=== PATIENT | male | born 1935 | race Caucasian/White ===

== ENCOUNTER 2018-03-14 21:54 | Emergency (ER) | payer MEDICARE ==
[2018-03-14 22:36] LABS: #Eosinphils 0.5 thou/uL (0.0-0.7); #Lymphocytes 1.2 thou/uL (1.20-3.40); #Monocytes 0.6 thou/uL (0.11-0.59); %Basophils 0.7 % (0.0-1.0); %Eosinophils 6.8 % (0.0-10.0); %Lymphocytes 16.6 % (21.0-51.0); %Monocytes 7.7 % (0.0-10.0); %Neutrophils 68.3 % (42.0-75.0); Hemoglobin 11.5 g/dL (14.0-18.0); Mean Corpuscular HGB CONC 33.1 g/dL (32.0-36.0); Mean Corpuscular Hemoglobin 34.7 pg (27.0-31.0); Mean Platelet Volume 5.9 fL (7.4-10.4); Platelet Count 225 thou/uL (130-400); RBC Distribution Width 14.5 % (11.5-14.5); Red Blood Cell (RBC) Count 3.33 mill/uL (4.70-6.10); White Blood Cell (WBC) Count 7.3 thou/uL (4.8-10.8)
[2018-03-14 22:56] LABS: ALT (SGPT) 10 U/L (8-55); AST (SGOT) 19 U/L (5-34); Albumin 3.2 g/dL (3.4-4.8); Alkaline Phosphatase 100 U/L (40-150); Anion Gap 16 mmol/L (10-20); BUN (Urea Nitrogen) 31 mg/dL (8.4-25.7); Bilirubin, Total 0.6 mg/dL (0.2-1.2); Calc. Creatinine Clearance 0 mL/min (70-130); Calcium 9.1 mg/dL (7.8-10.44); Carbon Dioxide 26 mmol/L (23-31); Chloride 98 mmol/L (98-107); Estimated GFR-MDRD 10; Globulin 3.3 g/dL (2.4-3.5); Glucose 95 mg/dL (83-110); Protein, Total 6.5 g/dL (5.8-8.1); Sodium 136 mmol/L (136-145)
[2018-03-14 22:59] LABS: CKMB 1.4 ng/mL (0-6.6); Troponin I 0.012 ng/mL (< 0.028)
[2018-03-14 23:35] LABS: CK (CPK) 35 U/L (30-200); Lipase 54 U/L (8-78)
--- NOTE | 2018-03-14 23:49 | CT ---
HEAD CT WITHOUT CONTRAST: 03/14/2018 HISTORY: Altered mental status. COMPARISON: None. TECHNIQUE: Serial axial CT imaging obtained at 5 mm intervals, from the vertex through the skull base, without c ontrast. FINDINGS: The imaged paranasal sinuses and mastoid air cells are well aerated. There is atherosclerotic calcif ication of the cavernous carotid arteries. There is no displaced calvarial fracture. No intracranial hemorrhage, midline shift, or mass effect is seen. There is periventricular hypodensity, evidence of small vessel disease. Areas of prior inf arction are noted within the right MCA territory, involving the frontal lobe, near the vertex. IMPRESSION: 1. Cerebral volume loss and evidence of small vessel disease/prior ischemia. 2. No acute findings are noted. POS: [facility]
--- NOTE | 2018-03-14 23:52 | RAD ---
FRONTAL RADIOGRAPH CHEST: 03/14/2018 HISTORY: Altered mental status. COMPARISON: 09/17/2015 FINDINGS: There are increased linear interstitial densities noted bilaterally, right greater than left, with a focal area of increased linear density in the right upper lobe region. There is no pneumothorax. Th e cardiac silhouette appears enlarged. Questionable small volume pleural effusions versus pleural th ickening noted. IMPRESSION: Linear interstitial density. A more focal asymmetric area of increased density is seen in the right upper lobe, which could represent infiltrate or underlying mass versus scar or volume loss. Recommend follow-up chest CT on a nonemergent basis for full assessment. CODE T POS: [facility]
--- NOTE | 2018-03-15 00:18 | ULT ---
RIGHT LOWER EXTREMITY VENOUS DOPPLER ULTRASOUND: 03/14/2018 HISTORY: Right lower extremity swelling. Altered mental status. Evaluate for DVT. COMPARISON: None. TECHNIQUE: Multiplanar dyer-scale sonographic imaging of the venous structures of the right lower extremity obta ined with color-flow and spectral analysis. FINDINGS: There is atheroma calcification of the right common femoral artery, incompletely assessed. The right common femoral vein, femoral vein, popliteal vein, greater saphenous vein, profunda femoral vein, an d anterior tibial vein are patent. The proximal posterior tibial vein could be better visualized, fu rther distally. The right posterior tibia vein is patent. There is a small Keating's cyst suspected, measuring in the 8 mm x 15 mm range. IMPRESSION: No evidence of deep venous thrombosis of the right lower extremity. Incidental findings as described above. POS: [facility]
[2018-03-15 01:04] LABS: Bilirubin Negative (Negative); Blood, Urine Negative (Negative); Clarity CLEAR (Clear); Glucose, Urine (Dipstick) Negative (Negative); Leukocyte Negative (Negative); Nitrite Negative (Negative); Protein, Urine (Dipstick) 100 mg/dL (Neg-Trace); Specific Gravity, Urine 1.012 (1.002-1.036); Urobilinogen 0.2 mg/dL (0.2-1.0); pH, Urine 8.5 (5.0-9.0)
[2018-03-15 01:07] LABS: Bacteria/HPF None Seen HPF (None Seen); Hyaline Casts/LPF 0-3 HYALINE CAST LPF (0-3 Hyaline); RBC/HPF None Seen HPF (0-3); Squamous Epithelial None Seen HPF (0-3); WBC/HPF None Seen HPF (0-3)
== END 2018-03-15 07:00 | disposition home or self-care (01) ==
LOC: ERS 21:54
DX: J18.9 Pneumonia, unspecified organism (principal); I48.91 Unspecified atrial fibrillation; I12.0 Hypertensive chronic kidney disease with stage 5 chronic kidney disease or end stage renal disease; N18.6 End stage renal disease; I50.9 Heart failure, unspecified; E78.5 Hyperlipidemia, unspecified; M10.9 Gout, unspecified; Z79.899 Other long term (current) drug therapy
CPT/HCPCS: 36415; 36416; 70450; 71045; 80053; 81003; 81015; 82553; 83690; 84484; 85025; 93005; 96365; J1956

== ENCOUNTER 2018-03-19 03:30 | Inpatient (IN) | payer MEDICARE, SELFPAY ==
[2018-03-19 04:40] LABS: #Eosinphils 0.7 thou/uL (0.0-0.7); #Monocytes 0.5 thou/uL (0.11-0.59); #Neutrophils 4.3 thou/uL (1.40-6.50); %Basophils 0.7 % (0.0-1.0); %Eosinophils 11.2 % (0.0-10.0); %Lymphocytes 14.9 % (21.0-51.0); %Monocytes 7.8 % (0.0-10.0); %Neutrophils 65.4 % (42.0-75.0); Hemoglobin 10.8 g/dL (14.0-18.0); Mean Corpuscular HGB CONC 33.2 g/dL (32.0-36.0); Mean Corpuscular Hemoglobin 34.6 pg (27.0-31.0); Mean Platelet Volume 6.3 fL (7.4-10.4); Platelet Count 226 thou/uL (130-400); RBC Distribution Width 14.5 % (11.5-14.5); Red Blood Cell (RBC) Count 3.12 mill/uL (4.70-6.10); White Blood Cell (WBC) Count 6.6 thou/uL (4.8-10.8)
[2018-03-19 04:54] LABS: ALT (SGPT) 8 U/L (8-55); AST (SGOT) 21 U/L (5-34); Alkaline Phosphatase 95 U/L (40-150); Anion Gap 13 mmol/L (10-20); BUN (Urea Nitrogen) 14 mg/dL (8.4-25.7); Bilirubin, Total 0.6 mg/dL (0.2-1.2); CK (CPK) 91 U/L (30-200); Calc. Creatinine Clearance 0 mL/min (70-130); Carbon Dioxide 30 mmol/L (23-31); Chloride 96 mmol/L (98-107); Estimated GFR-MDRD 15; Globulin 2.8 g/dL (2.4-3.5); Glucose 79 mg/dL (83-110); Lipase 19 U/L (8-78); Potassium 3.3 mmol/L (3.5-5.1); Protein, Total 5.8 g/dL (5.8-8.1); Sodium 136 mmol/L (136-145)
[2018-03-19 04:58] LABS: CKMB 3.5 ng/mL (0-6.6); Troponin I 0.024 ng/mL (< 0.028)
[2018-03-19 07:10] LABS: Bilirubin Negative (Negative); Blood, Urine Trace (Negative); Clarity CLEAR (Clear); Glucose, Urine (Dipstick) Negative (Negative); Leukocyte Negative (Negative); Nitrite Negative (Negative); Protein, Urine (Dipstick) 100 mg/dL (Neg-Trace); Specific Gravity, Urine 1.007 (1.002-1.036); Urobilinogen 0.2 mg/dL (0.2-1.0); pH, Urine 8.5 (5.0-9.0)
[2018-03-19 07:12] LABS: Bacteria/HPF None Seen HPF (None Seen); Hyaline Casts/LPF 0-3 HYALINE CAST LPF (0-3 Hyaline); RBC/HPF 0-3 HPF (0-3); Squamous Epithelial 0-3 HPF (0-3); WBC/HPF 0-3 HPF (0-3)
[2018-03-19 07:22] LABS: Amphetamine Not Detected (NotDetected); Barbiturates Screen Not Detected (NotDetected); Benzodiazepine Screen Not Detected (NotDetected); Cocaine Metabolite Screen Not Detected (NotDetected); Medtox Control Line Valid? VALID (VALID); Medtox Reader # READER 4; Methadone Not Detected (NotDetected); Methamphetamine Not Detected (NotDetected); Opiate Screen Not Detected (NotDetected); Oxycodone Screen Not Detected (NotDetected); Phencyclidine (PCP) Not Detected (NotDetected); THC/Cannabinoid Screen Not Detected (NotDetected); Tricyclic Screen Not Detected (NotDetected)
[2018-03-19 07:27] LABS: Renal Epithelial 0-3 HPF (0-3); Transitional Epithelial 0-3 HPF (0-3)
--- NOTE | 2018-03-19 07:38 | CT ---
FINAL REPORT EAF CT OF THE BRAIN: FINDINGS/IMPRESSION: I agree with the findings and impression given in the preliminary report per [facility] physician. Small- vessel ischemic disease and cerebral atrophy without acute intracranial abnormality. POS: [facility]
--- NOTE | 2018-03-19 07:45 | RAD ---
SINGLE VIEW CHEST: Date: 03/19/18 COMPARISON: 03/14/18. HISTORY: Fall earlier this evening with altered mental status. FINDINGS: Single view of the chest shows an enlarged but stable cardiomediastinal silhouette. Increased interst itial lung markings are stable. There is no evidence of consolidation, mass, or pleural effusion. IMPRESSION: Cardiomegaly without evidence of an acute cardiopulmonary disease. POS: [facility]
[2018-03-19] MEDS ORDERED: Acetaminophen 650 MG Suppository PR PRN (07:48)
[2018-03-19] MEDS ORDERED: Bisacodyl 5 MG TAB PO PRN (07:48)
[2018-03-19] MEDS ORDERED: Acetaminophen 325 MG TAB PO PRN (07:48)
[2018-03-19] MEDS ORDERED: Ondansetron HCl/PF 4 MG/2 ML Vial IVP PRN (08:20)
[2018-03-19] MEDS ORDERED: Ondansetron ODT 4 MG TAB SL PRN (08:20)
[2018-03-19] MEDS: Azithromycin 500 MG in Sodium Chloride 0.9% 250 ML 250 ML IVPB SCH (09:16)
[2018-03-19] MEDS: Heparin 5,000 UNITS/ML VIAL SC SCH ×2 (09:30→15:03)
--- NOTE | 2018-03-19 09:59 | CT ---
CT CHEST WITH CONTRAST: Comparison: Chest x-ray, 03-19-18. History: Pneumonia. Rule out underlying mass. Technique: Multiple contiguous axial images were obtained in a CT of the chest with contrast. Coronal reports were performed. FINDINGS: There are small bilateral pleural effusions, right greater than left, with adjacent atelectasis. Emph ysematous changes are seen throughout the lungs. Scarring is seen in both lung apices. This scarring is slightly nodular in the right upper lobe where it measures 1.7 cm in greatest dimension. No significant focal infiltrates are seen. No other areas of nodularity are seen in either lung. The heart is enlarged. Calcifications are seen in the coronary arteries and aorta. There are no hilar lymphadenopathy seen. There is a large pretracheal lymph node measuring 1.2 cm in short axis. Other prominent mediastinal lymph nodes are present. There are hypodensities in both kidneys which likely represent cysts. The other visualized subdiaphra gmatic structures are unremarkable. The chest wall soft tissues are unremarkable. Degenerative change s are seen in the spine. IMPRESSION: 1. Bilateral pleural effusions with adjacent atelectasis. 2. Biapical scarring. 3. Nonspecific enlarged mediastinal lymph nodes. 4. Bilateral renal cysts. POS: [facility]
[2018-03-19] MEDS: cefTRIAXone\\ROCEPHIN 1 GM in Sodium Chloride 0.9% 100 ML IVPB SCH (11:08)
[2018-03-19] MEDS ORDERED: ISOVUE-370 76%-LOCM 1 ML ONE (11:31)
[2018-03-19] MEDS ORDERED: Epoetin (ESRD) 20,000 UNITS/ML SC SCH (15:30)
--- NOTE | 2018-03-19 15:54 | HP ---
PRIMARY CARE PROVIDER: Any Osman. CHIEF COMPLAINT: Altered mental status. HISTORY OF PRESENT ILLNESS: Mr. Urbano is a pleasant 82-year-old gentleman who was seen at [facility] on 03/19/2018. The patient is unable to provide any history, saying "I don't know" to every question. Collateral hi story was initially obtained from review of medical records as well as from emergency room physician. I could not contact his today. I was able to get in touch with her over the telephone a few m inutes ago in the afternoon and obtained some more history. Mr. Urbano lives at [facility]. He reportedly started having episodes of confusion about 5 days a go. He was seen in the emergency room on 03/14/2018. Vascular ultrasound did not show any deep vein thrombosis at that time. He was diagnosed with pneumonia and discharged home on antibiotic. His wi fe does not know whether the confusion resolved, since she did not see him after that. Today, he was sent to the emergency room in [place] because of concern for altered mental status. Wo rkup there was unremarkable and patient was transferred here for further workup because of family's r equest. REVIEW OF SYSTEMS: Could not be completed because of patient's altered mental status. PAST MEDICAL HISTORY: Atrial fibrillation, congestive heart failure, hypertension, dyslipidemia, gou t, hearing loss, pneumonia, end-stage renal disease on hemodialysis Thursday, Thursday and Thursday. PAST SURGICAL HISTORY: Tonsillectomy, hernia repair, and left upper arm fistula. SOCIAL HISTORY: The patient lives at [facility]. He does not smoke or use recreational drugs. O ccasional alcohol use. FAMILY HISTORY: Unable to obtain. ALLERGIES: SULFA. CURRENT MEDICATIONS: Amlodipine 10 mg daily, Eliquis 2.5 mg 2 times a day, atorvastatin 40 mg daily, Benadryl 25 mg every 6 hours as needed, acetaminophen 1 gram every 6 hours as needed, and levofloxac in 750 mg daily. CODE STATUS: I discussed his code status. He is DNR. His is the medical power of medical intern. PHYSICAL EXAMINATION: GENERAL: On examination, Mr. Urbano is awake and alert, not in acute distress. VITAL SIGNS: Blood pressure is 137/55, pulse is 72, he is breathing at rate of 20 and saturating 100 % on 2 liters of oxygen. He is afebrile. EYES: No scleral icterus. No conjunctival pallor. ENT: Moist mucosal membranes, no oropharyngeal erythema or exudates. NECK: Supple, nontender, normal range of movement. Trachea is midline. RESPIRATORY: Accessory muscles of breathing are not active. Chest wall movements are symmetric bila terally. LUNGS: Clear to auscultation without wheeze, rhonchi or crepitations. CARDIOVASCULAR: S1 and S2 are heard, irregularly irregular. Peripheral pulses palpable. No carotid bruit, no pericardial rub. GASTROINTESTINAL: Abdomen is soft, nontender, bowel sounds heard, no hepatomegaly, no splenomegaly. NEUROLOGIC: Full neurologic examination not possible secondary to the patient's noncooperation. No facial droop. Deep tendon reflexes are 2+, plantar reflexes downgoing bilaterally. MUSCULOSKELETAL: The patient is moving all four extremities. SKIN: No rashes or subcutaneous nodules. LYMPHATIC: No cervical lymphadenopathy. PSYCHIATRIC: Patient appears to have normal mood, unable to assess orientation to person, place or t namita. IMAGING DATA AND LABORATORY DATA: Mr. Urbano's labs and investigations were reviewed. I reviewed shantell s electrocardiogram, which shows atrial fibrillation, no ST changes to suggest an acute coronary synd estrellita. I also reviewed his chest x-ray, which does not show any pulmonary infiltrates. He does have interstitial lung markings. He has normal white count, macrocytic anemia with hemoglobin 10.8, diana l platelet count, normal sodium, decreased potassium 3.3, elevated creatinine 3.83, decreased albumin of 3.0, otherwise unremarkable liver profile, normal troponin I. Urinalysis positive for protein an d trace blood and a negative urine drug screen. ASSESSMENT AND PLAN: Mr. Urbano is a pleasant 82-year-old gentleman who was seen at [facility] on 03/19/2018. His problem list includes: 1. Acute encephalopathy: Etiology is unclear at this time. We will admit patient to the hospital f or further workup, including MRI of the brain. We will send urine cultures to rule out infection in the form of bacteremia. We will also consult Neurology for opinion and help with management. 2. Abnormal chest x-ray: Patient does not have leukocytosis or fevers. However, he does have stabl e interstitial abnormality. I will start him on antibiotics for possible pneumonia, we will treat shantell verma with ceftriaxone and azithromycin since he was treated with levofloxacin in the outpatient setting. We will obtain CT scan of the chest to evaluate the chest x-ray abnormalities. 3. Hypokalemia: Replace potassium and recheck. 4. Atrial fibrillation: Continue anticoagulation. The patient is rate controlled. 5. End-stage renal disease on dialysis: Consulted Nephrology Service for maintenance hemodialysis. 6. Hypertension: Monitor vital signs, titrate antihypertensives as needed. Many thanks for allowing me to participate in your patient's care. Please feel free to contact me wi th any questions or concerns. LEVEL OF RISK: High. LEVEL OF COMPLEXITY: High.
--- NOTE | 2018-03-19 17:10 | MRI ---
MRI OF THE BRAIN WITHOUT CONTRAST 03/19/18 COMPARISON: 02/07/13 HISTORY: Altered mental status and confusion. History of fall last night. Pneumonia. TECHNIQUE: Multiplanar and multisequence MR images were obtained in the brain without contrast. FINDINGS: There are diffuse scattered foci of high T2/FLAIR signal in the subcortical and periventricular white matter, likely secondary to small vessel ischemic disease. No restricted diffusion is seen to sugges t an acute infarction. There is an area of susceptibility artifact in the right frontal subcortical w hermilo matter which likely represents an area of hemosiderin deposition. This was seen on the prior exa mination. Diffuse cerebral atrophy is seen. There is no evidence of hydrocephalus or extra-axial fluid collecti on. The expected flow voids are present. The corpus callosum, pituitary and craniocervical junction a re unremarkable. Fluid is seen in the right mastoid air cells. The visualized paranasal sinuses are well aerated. IMPRESSION: 1. No evidence of acute intracranial abnormality. 2. Small vessel ischemic disease. 3. Right mastoid opacification. This opacification is stable compared to the prior MRI. POS: [facility]
[2018-03-19] MEDS: Carvedilol 3.125 MG TAB PO SCH (17:37)
[2018-03-19] MEDS: Atorvastatin Calcium 40 MG TAB PO SCH (21:40)
[2018-03-19] MEDS: Apixaban 2.5 MG TAB PO SCH (21:40)
[2018-03-19] MEDS: Amlodipine 5 MG TAB PO SCH (21:40)
[2018-03-20 05:24] LABS: #Eosinphils 0.3 thou/uL (0.0-0.7); #Lymphocytes 0.7 thou/uL (1.20-3.40); #Monocytes 0.5 thou/uL (0.11-0.59); %Basophils 0.7 % (0.0-1.0); %Eosinophils 5.1 % (0.0-10.0); %Lymphocytes 10.9 % (21.0-51.0); %Monocytes 7.3 % (0.0-10.0); %Neutrophils 75.9 % (42.0-75.0); Hemoglobin 10.5 g/dL (14.0-18.0); Mean Corpuscular HGB CONC 32.3 g/dL (32.0-36.0); Mean Corpuscular Hemoglobin 33.2 pg (27.0-31.0); Platelet Count 222 thou/uL (130-400); RBC Distribution Width 14.2 % (11.5-14.5); Red Blood Cell (RBC) Count 3.18 mill/uL (4.70-6.10); White Blood Cell (WBC) Count 6.5 thou/uL (4.8-10.8)
[2018-03-20 05:47] LABS: Anion Gap 12 mmol/L (10-20); BUN (Urea Nitrogen) 9 mg/dL (8.4-25.7); Calc. Creatinine Clearance 20 mL/min (70-130); Calcium 8.7 mg/dL (7.8-10.44); Carbon Dioxide 30 mmol/L (23-31); Chloride 100 mmol/L (98-107); Estimated GFR-MDRD 24; Glucose 75 mg/dL (83-110); Sodium 138 mmol/L (136-145)
--- NOTE | 2018-03-20 08:25 | CON ---
DATE OF CONSULTATION: 03/19/2018 REFERRING PROVIDER: Marco A Soriano M.D. REASON FOR CONSULTATION: Altered mental status. HISTORY OF PRESENT ILLNESS: Mr. Urbano is a pleasant 82-year-old male who has been consult ed for evaluation of altered mental status. History is obtained from patient's son as well as [facility] medical chart. Son reports that over the past 3 months, he has been having increasing episodes o f confusion and disorientation. He also has been having increasing amount of falls. He has been at the custodial over the past 3 months due to him having recurrent falls. Apparently, he was sent t o [facility], where he was found to be having worsening confusion. The patient's son does r eport that he has been having increasing difficulty with memory and were he tends to forget short ter m as well as having difficulty with simple and complex tasks. PAST MEDICAL HISTORY: Significant for hypertension, dyslipidemia, history of atrial fibrillation, co ngestive heart failure, gout, hearing loss, pneumonia, end-stage renal disease on hemodialysis. PAST SURGICAL HISTORY: Significant for tonsillectomy, hernia repair and left upper fistula placement . SOCIAL HISTORY: He denies smoking, alcohol use, or illicit drug use. FAMILY HISTORY: Noncontributory. CURRENT MEDICATIONS: Please review MAR. ALLERGIES: Include SULFA DRUGS. REVIEW OF SYSTEMS: Patient has not had any fever, chills, chest pain, palpitation. PHYSICAL EXAMINATION: VITAL SIGNS: Blood pressure of 122/56, pulse of 71, temperature of 97.6, respirations of 18, O2 sats of 94% on 2 L nasal cannula. GENERAL: Well-developed, well-nourished male in no apparent distress. RESPIRATORY: Clear to auscultation bilaterally. CARDIOVASCULAR: Regular rate and rhythm. NEUROLOGIC: Mental status: The patient is awake, alert, and oriented to person only. He is able to follow some simple commands, but unable to perform complex task. Cranial nerves: Pupils are 3 mm a nd reactive. Visual zurita are full to threat. Extraocular muscles are intact. No nystagmus is not ed. Face is symmetric. Tongue and uvula are midline. Motor exam showed normal tone and bulk with a 5/5 strength in both lower extremities. Babinski: Plantar responses flexion bilaterally. Coordina tion, gait and Romberg could not be tested LABORATORY DATA: Labs are reviewed, which included CBC, CMP, urinalysis and urine drug screen, which is significant for hemoglobin of 10.8, hematocrit 32.5, potassium of 3.3. BNP of 142.1. BUN is unr emarkable. IMAGING STUDIES: MRI brain without contrast was reviewed, which showed no acute intracranial abnorma lity. IMPRESSION: 1. Altered mental status, likely toxic metabolic encephalopathy. 2. 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 ASSESSMENT AND PLAN: Mr. Urbano is a pleasant 82-year-old male who presented with the [facility] in mentation and confusion. After discussion with the patient's son in detail, it is likely that patient may have underlying dementia, mostly were Alzheimer's type. His confusion may be secondary to worsening of underlying dementia. At this time, I will recommend continue current medical managem ent. Thank you for consultation.
[2018-03-20] MEDS: Carvedilol 3.125 MG TAB PO SCH ×2 (08:55→16:35)
[2018-03-20] MEDS: Apixaban 2.5 MG TAB PO SCH ×2 (08:55→20:23)
[2018-03-20] MEDS: Azithromycin 500 MG in Sodium Chloride 0.9% 250 ML 250 ML IVPB SCH (09:12)
[2018-03-20] MEDS: cefTRIAXone\\ROCEPHIN 1 GM in Sodium Chloride 0.9% 100 ML IVPB SCH (10:40)
--- NOTE | 2018-03-20 10:46 | CON ---
DATE OF CONSULTATION: 03/19/2018 HISTORY OF PRESENT ILLNESS: Mr. Urbano is an 82-year-old white male with ESRD -- on maintenance hemo dialysis and admitted for more confusion. According to the family, he is getting more incoherent and could not remember things. He is now admitted for rule out CVA. An MRI of the brain has been sched uled today. We are being consulted for his maintenance hemodialysis. I have scheduled him for dialy sis this afternoon. REVIEW OF SYSTEMS: Positive for confusion. No nausea and vomiting. Appetite and energy level is fa ir. No gross hematuria, no dysuria, no urine frequency, no abdominal pain, no headache, no fever or chills, no shortness of breath, no hematochezia, no melena, no hematemesis occasional joint pains, no new skin rash. MEDICATIONS: Tylenol 650 q.4 p.r.n., Norvasc 5 mg at bedtime, Lipitor 40 mg at bedtime, azithromycin 250 mg IV q.24 hours., Carvedilol 3.125 mg b.i.d., ceftriaxone 1 gram IV daily, Procrit 5000 units s ubcutaneously every week, heparin 5000 units subcu t.i.d., Ambien 5 mg at bedtime p.r.n. PAST MEDICAL HISTORY: 1. ESRD secondary to renal vascular disease. 2. Peripheral vascular disease. 3. History of atheroembolic renal disease. 4. Hypertension. 5. COPD. 6. History of atrial fibrillation. 7. Hyperlipidemia. 8. Congestive heart failure. PAST SURGICAL HISTORY: 1. Status post penile prosthesis. 2. Status post cataract surgery bilaterally. 3. Status post tonsillectomy. 4. Status post colonoscopy. 5. Status post appendectomy. 6. Status post cardiac catheterization. 7. Status post left upper extremity AV fistula placement. 8. Status post right inguinal hernia repair. 9. Status post right carotid endarterectomy. ALLERGIES: SULFA. TRAUMA: History of frequent falls. IMMUNIZATIONS: Up to date. HOSPITALIZATIONS: Please see past medical history. FAMILY HISTORY: Positive family history of hypertension and diabetes mellitus. SOCIAL HISTORY: The patient lives in [place], . 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 Educati on college graduate. Smoked for 35 years, one pack a day, currently not smoking. Alcohol none. No IV drug abuse. No blood transfusion. PHYSICAL EXAMINATION: VITAL SIGNS: Blood pressure is 125/57, heart rate 78, respiratory rate 16, temperature 97.4, pulse o x 92%. GENERAL: Noted to be awake, comfortable, not in overt distress. SKIN: Decreased turgor. HEENT: He has slightly pale conjunctivae, anicteric sclerae. NECK: No neck mass, no carotid bruits, no JVD. CHEST: No deformities. LUNGS: Clear breath sounds, no wheezing, no crackles. HEART: Normal sinus rhythm. Grade 2/6 systolic murmur. No gallops, no rubs. ABDOMEN: Globular, soft, nontender, no masses. EXTREMITIES: No edema, no deformities. NEUROLOGIC: Intermittently confused, mild resting tremor, no asterixis. LABORATORY: Of 03/19/2018, white count 6.6, hemoglobin 10.8. Sodium 136, potassium 3.3, chloride 96 , carbon dioxide 30, BUN 14, creatinine 3.83, AST 21, ALT 8, lipase 19. Troponin I 0.024. Of 2017, CT scan of the brain shows no acute intracranial abnormality. On 03/19/2018, CT of the chest, bilateral pleural effusions, nonspecific enlarged mediastinal lymph nodes, bilateral renal cysts by a pical scar. ASSESSMENT AND PLAN: 1. Confusion - intermittent in nature - possibility of early dementia. MRI of the brain will be don e today. CT scan did not show any acute intracranial abnormality. 2. End-stage renal disease, stable. We will continue current hemodialysis regimen of Thursday, day, Thursday. Fluid removal only as tolerated. Review of the last Kt/V suggests he is adequately dante lyzed with the current dialysis regimen. 3. Anemia - we will continue Procrit at 5000 units subcu every week. Agree with current management. Recheck base met and CBC in a.m.
--- NOTE | 2018-03-20 12:42 | PRG ---
DATE OF SERVICE: 03/20/2018 SUBJECTIVE: Mr. Urbano is an 82-year-old black male with ESRD who was admitted for mental status [facility]. He had an MRI and CT scan of the head - done yesterday without any acute intracranial abnormali ty. He has also been seen by Neurology. The feeling is that he may have early dementia. We are fol lowing this patient for his maintenance hemodialysis. He underwent hemodialysis yesterday without an y difficulty. This morning, he denies any new complaints. He denies any chest pain or shortness of breath. PHYSICAL EXAMINATION: VITAL SIGNS: Blood pressure is 120/57, heart rate 80, respiratory rate 18, temperature 97.2, pulse o x 91% - room air. GENERAL: Awake, alert, comfortable, not in overt distress. SKIN: Adequate turgor. HEENT: Slightly pale conjunctivae, anicteric sclerae. NECK: No neck mass, no carotid bruits, no JVD. CHEST: No deformities. LUNGS: Clear breath sounds, no wheezing, no crackles. HEART: Normal sinus rhythm. No murmurs, no gallops, no rubs. ABDOMEN: Globular, soft, nontender. No masses. EXTREMITIES: No edema, no deformities. MEDICATIONS: Medications of 03/20/2018 was reviewed. LABORATORY DATA: Laboratories of 03/20/2018; white count 6.5, hemoglobin 10.5. Sodium 138, potassiu m 4, chloride 100, carbon dioxide 30, BUN 9, creatinine 2.58, glucose 75, calcium 8.7. BNP 1242. Hemoglobin 10.5. ASSESSMENT AND PLAN: 1. Anemia, on weekly Epogen. 2. End-stage renal disease, stable. We will continue current Thursday, Thursday, and Thursday dialysis . Due to the elevated BNP, consider maxing out fluid removal with the next dialysis if the patient t olerates this. He did undergo dialysis yesterday without any difficulty. 3. Increased forgetfulness/confusion, early dementia is a possibility. This patient may eventually need in the near future Aricept. Neurology has evaluated this patient. 4. Hypertension. Continue current blood pressure meds. Overall, agree with current management.
--- NOTE | 2018-03-20 12:55 | PDOC.PN ---
- Subjective Encounter Start Date: 03/20/18 Encounter Start Time: 07:20 Pt seen for followup re:acute encephalopathy. Cough+, sputum+ - Objective Resuscitation Status: Resuscitation Status DNR:Do Not Resuscitate MAR Reviewed: Yes Vital Signs & Weight: Vital Signs (12 hours) Temp Pulse Resp BP Pulse Ox 03/20/18 12:00 98.0 F 70 16 139/62 96 03/20/18 08:00 97.2 F L 80 18 03/20/18 07:46 97.2 F L 80 18 120/57 L 91 L 03/20/18 04:00 98.6 F 85 18 126/61 94 L I&O: 03/19/18 03/20/18 03/21/18 06:59 06:59 06:59 Intake Total 525 Output Total 200 Balance 525 -200 Result Diagrams: 03/20/18 05:17 03/20/18 05:17 Additional Labs: Labs reviewed by me EKG Reviewed by me: Yes (Tele: a. fib) Phys Exam - Physical Examination Constitutional: NAD HEENT: moist MMs, sclera anicteric, oral pharynx no lesions, 2+ tonsils Neck: no nodes, no JVD, supple, full ROM Respiratory: no wheezing, no rhonchi Bibasal crackles Cardiovascular: no rub, irregular S1, S2 Neurological: moves all 4 limbs Psychiatric: normal affect Deviation from normal: Oriented to person only, not to place or time Dx/Plan (1) Acute encephalopathy Code(s): G93.40 - ENCEPHALOPATHY, UNSPECIFIED Status: Acute Comment: Improving, likely due to respiratory infection (2) URTI (acute upper respiratory infection) Code(s): J06.9 - ACUTE UPPER RESPIRATORY INFECTION, UNSPECIFIED Status: Acute Comment: continue IV antibiotics as below (3) ESRD (end stage renal disease) on dialysis Code(s): N18.6 - END STAGE RENAL DISEASE; Z99.2 - DEPENDENCE ON RENAL DIALYSIS Status: Chronic Comment: Dialysis per nephrology service (4) CHF (congestive heart failure) Code(s): I50.9 - HEART FAILURE, UNSPECIFIED Status: Chronic Qualifiers: Heart failure type: systolic Comment: stable (5) HTN (hypertension) Code(s): I10 - ESSENTIAL (PRIMARY) HYPERTENSION Status: Chronic Comment: controlled - Plan * . Review of Systems - Review of Systems Constitutional: negative: fever, chills, sweats, weakness, malaise Respiratory: Cough, Sputum. negative: Dry, Shortness of Breath, Hemoptysis, SOB with Excertion, Pleuritic Pain, Wheezing Cardiovascular: negative: chest pain, palpitations, orthopnea, paroxysmal nocturnal dyspnea, edema, light headedness Gastrointestinal: negative: Nausea, Vomiting, Abdominal Pain, Diarrhea, Constipation, Melena, Hematochezia Genitourinary: negative: Dysuria, Frequency, Incontinence, Hematuria, Retention Skin: negative: Rash, Lesions, Lex, Bruising - Medications/Allergies Allergies/Adverse Reactions: Allergies Allergy/AdvReac Type Severity Reaction Status Date / Time Sulfa (Sulfonamide Allergy Verified 04/01/15 08:01 Antibiotics) Medications: Current Medications Acetaminophen (Tylenol) 650 mg PO Q4H PRN PRN Reason: Headache/Fever or Pain Acetaminophen (Tylenol) 650 mg SD Q4H PRN PRN Reason: Headache/Fever or Pain Amlodipine Besylate (Norvasc) 5 mg PO [facility] Last Admin: 03/19/18 21:40 Dose: 5 mg Apixaban (Eliquis) 2.5 mg PO BID [facility] Last Admin: 03/20/18 08:55 Dose: 2.5 mg Atorvastatin Calcium (Lipitor) 40 mg PO [facility] Last Admin: 03/19/18 21:40 Dose: 40 mg Bisacodyl (Dulcolax) 10 mg PO DAILYPRN PRN PRN Reason: Constipation Carvedilol (Coreg) 3.125 mg PO BID-[facility] Last Admin: 03/20/18 08:55 Dose: 3.125 mg Epoetin Carl (Procrit) 5,000 units SC Q7D [facility] Last Admin: 03/19/18 17:30 Dose: 5,000 units Azithromycin 500 mg/ Sodium (Chloride) 250 mls @ 250 mls/hr IVPB Q24HR [facility] Last Admin: 03/20/18 09:12 Dose: 250 mls Ceftriaxone Sodium 1 gm/ (Sodium Chloride) 100 mls @ 200 mls/hr IVPB Q24HR [facility] Last Admin: 03/20/18 10:40 Dose: 100 mls Zolpidem Tartrate (Ambien) 5 mg PO HSPRN PRN PRN Reason: Insomnia
[2018-03-20 18:31] LABS: Hemoglobin 10.5 g/dL (14.0-18.0); Platelet Count 230 thou/uL (130-400)
[2018-03-20] MEDS: Amlodipine 5 MG TAB PO SCH (20:23)
[2018-03-20] MEDS: Atorvastatin Calcium 40 MG TAB PO SCH (20:24)
[2018-03-21] MEDS: Carvedilol 3.125 MG TAB PO SCH ×2 (08:06→16:51)
[2018-03-21] MEDS: Apixaban 2.5 MG TAB PO SCH ×2 (08:06→21:56)
[2018-03-21] MEDS: Azithromycin 500 MG in Sodium Chloride 0.9% 250 ML 250 ML IVPB SCH (08:07)
[2018-03-21] MEDS: cefTRIAXone\\ROCEPHIN 1 GM in Sodium Chloride 0.9% 100 ML IVPB SCH (09:03)
[2018-03-21] MEDS ORDERED: Doxycycline 100 MG CAP PO SCH (09:30)
--- NOTE | 2018-03-21 12:18 | PRG ---
DATE OF SERVICE: 03/21/2018 SUBJECTIVE: Mr. Urbano is an 82-year-old white male with ESRD admitted for confusion/mental status c zaye. Imaging of the brain with MRI and CT scan showed no acute intracranial abnormality. He has w hermilo matter ischemic changes noted. He has been evaluated by Neurology. He may have early dementia. This morning, he voices no new complaints. He denies any chest pain or shortness of breath. PHYSICAL EXAMINATION: VITAL SIGNS: Blood pressure is 132/60, heart rate 66, respiratory rate 16, temperature 97.5, pulse o ximetry 91%. GENERAL: Awake, sitting comfortable, not in distress. SKIN: Adequate turgor. HEENT: He has pinkish conjunctivae, anicteric sclerae. NECK: No neck mass, no carotid bruits, no JVD. CHEST: No deformities. LUNGS: Clear breath sounds, no wheezing, no crackles. HEART: Normal sinus rhythm. No murmur, no gallops, no rubs. ABDOMEN: Globular, soft, nontender, no masses. EXTREMITIES: No edema, no deformities. MEDICATIONS: Medications of 03/21/2018 reviewed. LABORATORY DATA: Laboratories of 03/20/2018, hemoglobin 10.5. Sodium 138, potassium 4, chloride 100 , carbon dioxide 30, BUN 9, creatinine 2.58, calcium 8.7. ASSESSMENT AND PLAN: 1. End-stage renal disease, stable. Continue current hemodialysis regimen. There is no acute indic ation for any dialytic intervention today. We will schedule him back tomorrow for his Thursday, day, Thursday dialysis. Due to his elevated BNP, we will attempt to max out fluid removal with dialysi s tomorrow. 2. Chronic anemia -- currently on weekly Epogen. 3. Increased forgetfulness/mental status change. This could be a reflection of early dementia. Sup portive care. Agree with current management.
[2018-03-21] MEDS: Doxycycline 100 MG CAP PO SCH (21:56)
[2018-03-21] MEDS: Atorvastatin Calcium 40 MG TAB PO SCH (21:56)
[2018-03-21] MEDS: Amlodipine 5 MG TAB PO SCH (21:56)
[2018-03-21] MEDS: Zolpidem Tartrate 5 MG TAB PO PRN (22:12)
--- NOTE | 2018-03-21 22:46 | PDOC.PN ---
- Subjective Encounter Start Date: 03/21/18 Encounter Start Time: 14:30 Patient seen and examined for Encephalopathy. No new complaints. No overnight events - Objective Resuscitation Status: Resuscitation Status DNR:Do Not Resuscitate MAR Reviewed: Yes Vital Signs & Weight: Vital Signs (12 hours) Temp Pulse Pulse Pulse Resp BP BP 03/21/18 21:56 67 03/21/18 21:30 97.5 F L 68 16 03/21/18 16:00 97.4 F L 67 18 03/21/18 13:05 69 49 L 93/49 L 140/60 03/21/18 11:53 97.9 F 03/21/18 11:37 69 16 BP Pulse Ox 03/21/18 21:56 03/21/18 21:30 128/57 L 93 L 03/21/18 16:00 136/60 90 L 03/21/18 13:05 03/21/18 11:53 03/21/18 11:37 93/49 L 93 L Weight Weight 139 lb 6.4 oz I&O: 03/20/18 03/21/18 03/22/18 06:59 06:59 06:59 Intake Total 301 281 9524 Output Total 201 100 Balance 164 515 0367 Result Diagrams: 03/20/18 18:19 03/20/18 18:19 EKG Reviewed by me: Yes (Tele Afib with SVR) Phys Exam - Physical Examination Constitutional: NAD Respiratory: no wheezing, no rales Scat rhonchi Cardiovascular: no rub, irregular Gastrointestinal: soft, non-tender, positive bowel sounds Musculoskeletal: no edema Dx/Plan (1) Toxic metabolic encephalopathy Code(s): G92 - TOXIC ENCEPHALOPATHY Status: Acute Comment: improving (2) Atrial fibrillation with slow ventricular response Code(s): I48.91 - UNSPECIFIED ATRIAL FIBRILLATION Status: Acute (3) Pneumonia Code(s): J18.9 - PNEUMONIA, UNSPECIFIED ORGANISM Status: Acute Comment: suspected due to pneumococcal (4) Dementia Code(s): F03.90 - UNSPECIFIED DEMENTIA WITHOUT BEHAVIORAL DISTURBANCE Status: Chronic (5) ESRD (end stage renal disease) on dialysis Code(s): N18.6 - END STAGE RENAL DISEASE; Z99.2 - DEPENDENCE ON RENAL DIALYSIS Status: Chronic Comment: Dialysis per nephrology service - Plan continue antibiotics, PT/OT, DVT proph w/SCDs Change Azithromycin to Doxycycline -: Hold Coreg for HR <55, Consult Dr Wagner in AM -: Cont current meds as below -: [place] AM labs with Vit B12/Folic acid -: Cont Ceftriaxone, Reduce Amlodipine due to BP on lower side Review of Systems - Review of Systems Respiratory: Cough, Dry. negative: Shortness of Breath, Hemoptysis, SOB with Excertion, Pleuritic Pain, Sputum, Wheezing Cardiovascular: negative: chest pain, palpitations, orthopnea, paroxysmal nocturnal dyspnea, edema, light headedness, other - Medications/Allergies Allergies/Adverse Reactions: Allergies Allergy/AdvReac Type Severity Reaction Status Date / Time Sulfa (Sulfonamide Allergy Verified 04/01/15 08:01 Antibiotics) Medications: Current Medications Acetaminophen (Tylenol) 650 mg PO Q4H PRN PRN Reason: Headache/Fever or Pain Acetaminophen (Tylenol) 650 mg ID Q4H PRN PRN Reason: Headache/Fever or Pain Amlodipine Besylate (Norvasc) 2.5 mg PO [facility] Last Admin: 03/21/18 21:56 Dose: 2.5 mg Apixaban (Eliquis) 2.5 mg PO BID [facility] Last Admin: 03/21/18 21:56 Dose: 2.5 mg Atorvastatin Calcium (Lipitor) 40 mg PO [facility] Last Admin: 03/21/18 21:56 Dose: 40 mg Bisacodyl (Dulcolax) 10 mg PO DAILYPRN PRN PRN Reason: Constipation Carvedilol (Coreg) 3.125 mg PO BID[facility] Last Admin: 03/21/18 16:51 Dose: 3.125 mg Doxycycline Hyclate (Vibramycin) 100 mg PO BID [facility] Last Admin: 03/21/18 21:56 Dose: 100 mg Epoetin Carl (Procrit) 5,000 units SC Q7D [facility] Last Admin: 03/19/18 17:30 Dose: 5,000 units Ceftriaxone Sodium 1 gm/ (Sodium Chloride) 100 mls @ 200 mls/hr IVPB Q24HR [facility] Last Admin: 03/21/18 09:03 Dose: 100 mls Zolpidem Tartrate (Ambien) 5 mg PO HSPRN PRN PRN Reason: Insomnia Last Admin: 03/21/18 22:12 Dose: 5 mg
[2018-03-22 05:32] LABS: #Eosinphils 1.2 thou/uL (0.0-0.7); #Lymphocytes 0.8 thou/uL (1.20-3.40); #Monocytes 0.4 thou/uL (0.11-0.59); #Neutrophils 5.3 thou/uL (1.40-6.50); %Basophils 0.4 % (0.0-1.0); %Eosinophils 15.8 % (0.0-10.0); %Lymphocytes 10.7 % (21.0-51.0); %Monocytes 5.5 % (0.0-10.0); %Neutrophils 67.6 % (42.0-75.0); Hemoglobin 11.5 g/dL (14.0-18.0); Mean Corpuscular Hemoglobin 32.9 pg (27.0-31.0); Mean Platelet Volume 5.8 fL (7.4-10.4); Platelet Count 246 thou/uL (130-400); RBC Distribution Width 14.5 % (11.5-14.5); White Blood Cell (WBC) Count 7.9 thou/uL (4.8-10.8)
[2018-03-22 06:00] LABS: Anion Gap 11 mmol/L (10-20); BUN (Urea Nitrogen) 20 mg/dL (8.4-25.7); Calc. Creatinine Clearance 12 mL/min (70-130); Calcium 8.7 mg/dL (7.8-10.44); Carbon Dioxide 28 mmol/L (23-31); Chloride 101 mmol/L (98-107); Estimated GFR-MDRD 13; Glucose 79 mg/dL (83-110); Magnesium 1.6 mg/dL (1.6-2.6); Potassium 3.7 mmol/L (3.5-5.1); Sodium 136 mmol/L (136-145)
[2018-03-22 06:43] LABS: Folate (Folic Acid) 2.3 ng/mL (7.0-31.4)
--- NOTE | 2018-03-22 09:11 | PRG ---
DATE OF SERVICE: 03/22/2018 RENAL MEDICINE SUBJECTIVE: Mr. Urbano is an 82-year-old white male being followed by the Renal Service for his main tenance hemodialysis. He has known history of chronic atrial fibrillation. We are waiting for cardi ology evaluation. This morning, he voices no new complaints. He denies any chest pain or shortness of breath. PHYSICAL EXAMINATION: VITAL SIGNS: Blood pressure is 140/64, heart rate 64, respiratory rate 20, temperature 97.3, and pul se ox 91%. GENERAL: Noted to be awake, alert, sitting comfortable. SKIN: Adequate turgor. HEENT: Pinkish conjunctivae. Anicteric sclerae. NECK: No neck mass, no carotid bruits, no JVD. CHEST: No deformities. LUNGS: Clear breath sounds. No wheezing, no crackles. HEART: Irregular. No murmur, no gallops, no rubs. ABDOMEN: Globular, soft, nontender, no masses. EXTREMITIES: No edema, no deformities. MEDICATIONS: Medications of 03/22/2018 was reviewed. LABORATORY DATA: Laboratories of 03/22/2018; white count 7.9, hemoglobin 11.5. Sodium 136, potassiu m 3.7, chloride 101, carbon dioxide 28, BUN 20, creatinine 4.4, glucose 79, calcium 8.7, magnesium 1. 6, folate 2.3, vitamin B12 611. ASSESSMENT AND PLAN: 1. End-stage renal disease, stable. We will continue current hemodialysis regimen. The patient has been scheduled for his Thursday, Thursday and Thursday dialysis. Again, fluid removal only as tolerate d by the patient. 2. Chronic atrial fibrillation - Cardiology consult has been done. 3. Borderline anemia - continuing to give Epogen at 5000 units subcutaneously every 7 days. 4. Agree with current management.
[2018-03-22 09:26] VITALS: BMI 20.9
[2018-03-22] MEDS: Magnesium Chloride 64 MG TAB PO SCH ×2 (09:41→21:39)
[2018-03-22] MEDS: Folic Acid 1 MG TAB PO SCH ×2 (09:41→21:41)
[2018-03-22] MEDS: Apixaban 2.5 MG TAB PO SCH ×2 (09:41→21:39)
[2018-03-22] MEDS: Doxycycline 100 MG CAP PO SCH ×2 (09:41→21:40)
[2018-03-22] MEDS: cefTRIAXone\\ROCEPHIN 1 GM in Sodium Chloride 0.9% 100 ML IVPB SCH (09:42)
[2018-03-22] MEDS: Carvedilol 3.125 MG TAB PO SCH (09:52)
--- NOTE | 2018-03-22 10:59 | CON ---
DATE OF CONSULTATION: 03/22/2018 REASON FOR CONSULTATION: Atrial fibrillation, history of coronary artery disease, and altered mental status. HISTORY OF PRESENT ILLNESS: Mr. Urbano is a very pleasant gentleman who was admitted to the hospital on 03/19/2018. At that point, the patient began having problem with confusion and disorientation. He was initially seen and diagnosed with pneumonia and sent back to [facility]. He had altered me ntal status and went back to the emergency room and was transferred here on 03/19/2018. After Dr. Bijan cedeno saw the patient and also Dr. Keita. Dr. Keita thought the patient had metabolic encephalopathy. T he patient's mental status has improved. The patient otherwise has been doing fairly well. From a cardiac standpoint, although his overall he alth has been declining. PAST MEDICAL HISTORY: 1. Chronic atrial fibrillation. 2. History of renal insufficiency, now with renal failure, on dialysis. 3. Peripheral vascular disease. 4. Chronic obstructive pulmonary disease. 5. History of congestive heart failure, most recent echo showed ejection fraction 30%-35%. Cannot t olerate DON INHIBITORS. CODE STATUS: DO NOT RESUSCITATE. MEDICATIONS: 1. He was on Carvedilol 3.125 mg twice a day. 2. Atorvastatin. 3. Apixaban 2.5 mg twice a day. 4. Amlodipine 5 mg at bedtime. 5. He is on antibiotic Rocephin. REVIEW OF SYSTEMS: He is more alert and oriented now. He knows where he is, but he is confused abou t what got him here. He knows me and he knows where he is now. He knows he is in the hospital here in [place]. ALLERGIES: SULFA. PHYSICAL EXAMINATION: GENERAL: This is a pleasant gentleman, in no distress. As mentioned, his orientation has improved. VITAL SIGNS: Blood pressure 140/60, pulse 60, it is irregular. HEENT: Eyes: Sclerae nonicteric. Mouth: Mucous membranes moist. NECK: Supple, no lymphadenopathy. LUNGS: Clear. CARDIAC: Irregularly irregular. No murmur, rub or gallop. ABDOMEN: Soft, nontender. EXTREMITIES: No clubbing or cyanosis. There is no edema. SKIN: Warm and dry. Extremities are warm. LABORATORY AND X-RAY FINDINGS: EKG reveals atrial fibrillation with a controlled rate. At times, th e patient does have some bradycardia at 11:40 a.m. Yesterday, he had some brief pauses 1.8 seconds. Brief episode of heart rate of under 40s yesterday at the same time. PERTINENT LABORATORY: His creatinine is 4.4, hemoglobin is 11.5. ASSESSMENT: 1. The patient has end-stage renal disease. 2. Altered mental status is improved. 3. History of carotid arterial stenosis with previous endarterectomy. 4. History of congestive heart failure. PLAN: 1. Echocardiogram to be done. 2. Stop carvedilol in view of bradycardia. 3. Cannot tolerate DON inhibitors due to renal failure. 4. Prognosis is poor in long-term. CODE STATUS: DO NOT RESUSCITATE. Further recommendations after the echocardiogram is completed.
--- NOTE | 2018-03-22 13:45 | PDOC.PN ---
- Subjective Encounter Start Date: 03/22/18 Encounter Start Time: 07:20 Pt seen for followup re: upper respiratory tract infection. Cough better. No fevers or chills. no nausea or vomiting. no abdo pain. - Objective Resuscitation Status: Resuscitation Status DNR:Do Not Resuscitate MAR Reviewed: Yes Vital Signs & Weight: Vital Signs (12 hours) Temp Pulse Pulse Pulse Pulse Resp BP 03/22/18 11:48 97.4 F L 57 L 18 03/22/18 08:56 62 65 151/75 H 03/22/18 08:50 97.3 F L 64 20 03/22/18 08:18 64 57 L 96/54 L 03/22/18 07:39 97.3 F L 64 20 03/22/18 04:30 97.4 F L 66 16 03/22/18 02:50 BP BP BP Pulse Ox Pulse Ox Pulse Ox Pulse Ox 03/22/18 11:48 137/62 92 L 03/22/18 08:56 121/60 90 L 89 L 84 L 03/22/18 08:50 03/22/18 08:18 132/60 81 L 94 L 03/22/18 07:39 140/64 91 L 03/22/18 04:30 132/61 91 L 03/22/18 02:50 93 L Weight Admit Weight 144 lb Weight 150 lb 11.2 oz I&O: 03/21/18 03/22/18 03/23/18 06:59 06:59 06:59 Intake Total 510 1943 Output Total 201 100 100 Balance 309 1843 -100 Result Diagrams: 03/22/18 04:43 03/22/18 04:43 EKG Reviewed by me: Yes (Tele: oh boudreaux) Phys Exam - Physical Examination Constitutional: NAD HEENT: moist MMs Neck: supple Respiratory: clear to auscultation bilateral Cardiovascular: irregular Gastrointestinal: soft Neurological: moves all 4 limbs Psychiatric: normal affect Deviation from normal: Oriented to person and place Dx/Plan (1) URTI (acute upper respiratory infection) Code(s): J06.9 - ACUTE UPPER RESPIRATORY INFECTION, UNSPECIFIED Status: Acute Comment: Switch to oral antibiotics, pt is improving (2) Acute encephalopathy Code(s): G93.40 - ENCEPHALOPATHY, UNSPECIFIED Status: Acute Comment: Improving, likely due to upper respiratory tract infection (3) Bradycardia Code(s): R00.1 - BRADYCARDIA, UNSPECIFIED Status: Acute Comment: beta leonora on hold, 2D echo pending. Continue to monitor on telemetry. (4) ESRD (end stage renal disease) on dialysis Code(s): N18.6 - END STAGE RENAL DISEASE; Z99.2 - DEPENDENCE ON RENAL DIALYSIS Status: Chronic Comment: Dialysis per nephrology service (5) CHF (congestive heart failure) Code(s): I50.9 - HEART FAILURE, UNSPECIFIED Status: Chronic Qualifiers: Heart failure type: systolic Comment: stable (6) HTN (hypertension) Code(s): I10 - ESSENTIAL (PRIMARY) HYPERTENSION Status: Chronic Comment: controlled - Plan continue antibiotics, PT/OT, out of bed/ambulate * . Likely home to [facility] in 24-48 hours Review of Systems - Review of Systems Respiratory: Cough, Sputum. negative: Dry, Shortness of Breath, Hemoptysis, SOB with Excertion, Pleuritic Pain, Wheezing Cardiovascular: negative: chest pain, palpitations, orthopnea, paroxysmal nocturnal dyspnea, edema, light headedness - Medications/Allergies Allergies/Adverse Reactions: Allergies Allergy/AdvReac Type Severity Reaction Status Date / Time Sulfa (Sulfonamide Allergy Verified 04/01/15 08:01 Antibiotics) Medications: Current Medications Acetaminophen (Tylenol) 650 mg PO Q4H PRN PRN Reason: Headache/Fever or Pain Acetaminophen (Tylenol) 650 mg [place] Q4H PRN PRN Reason: Headache/Fever or Pain Amlodipine Besylate (Norvasc) 2.5 mg PO HS [facility] Last Admin: 03/21/18 21:56 Dose: 2.5 mg Apixaban (Eliquis) 2.5 mg PO BID [facility] Last Admin: 03/22/18 09:41 Dose: 2.5 mg Atorvastatin Calcium (Lipitor) 40 mg PO HS [facility] Last Admin: 03/21/18 21:56 Dose: 40 mg Bisacodyl (Dulcolax) 10 mg PO DAILYPRN PRN PRN Reason: Constipation Cefdinir (Omnicef) 300 mg PO BID [facility] Doxycycline Hyclate (Vibramycin) 100 mg PO BID [facility] Last Admin: 03/22/18 09:41 Dose: 100 mg Epoetin Carl (Procrit) 5,000 units SC Q7D [facility] Last Admin: 03/19/18 17:30 Dose: 5,000 units Folic Acid (Folvite) 1 mg PO BID [facility] Last Admin: 03/22/18 09:41 Dose: 1 mg Magnesium Chloride (Slow-Mag) 64 mg PO BID [facility] Last Admin: 03/22/18 09:41 Dose: 64 mg Zolpidem Tartrate (Ambien) 5 mg PO HSPRN PRN PRN Reason: Insomnia Last Admin: 03/21/18 22:12 Dose: 5 mg
--- NOTE | 2018-03-22 14:01 | ADD-CON ---
ADDENDUM Mr. Urbano's ejection fraction is 45%-50% on echocardiogram. There is moderate mitral and tricuspid insufficiency. The patient is in atrial fibrillation, the full dictation or note is in the chart. Kobi sweet with me to be released home on the current medical regimen including Eliquis 2.5 mg twice a day. He has been taken off of carvedilol as he was having some bradycardia. Ejection fraction is in the 45%-50% range.
[2018-03-22] MEDS: Amlodipine 5 MG TAB PO SCH (21:40)
[2018-03-22] MEDS: Atorvastatin Calcium 40 MG TAB PO SCH (21:40)
[2018-03-22] MEDS: Cefdinir 300 MG CAP PO SCH (21:40)
[2018-03-22] MEDS: Zolpidem Tartrate 5 MG TAB PO PRN (21:41)
--- NOTE | 2018-03-23 08:41 | PRG ---
DATE OF SERVICE: 03/23/2018 SUBJECTIVE: Ms. Urbano is an 82-year-old white male with ESRD being followed up by Renal Service for his maintenance hemodialysis. He was evaluated by Cardiology yesterday. Recommendation is medical management. His Coreg has been discontinued due to the bradycardia. In addition, Eliquis was recomm ended for his chronic atrial fibrillation. This morning, he is feeling better. He denies any chest pain or shortness of breath. This patient was initially admitted due to mental status change. His mentation is much improved. The patient denies any chest pain or shortness of breath at the pres ent time. PHYSICAL EXAMINATION: VITAL SIGNS: Blood pressure 138/63, heart rate 60, respiratory rate 20, temperature 96.2, pulse ox 9 7%. GENERAL: Awake, alert, comfortable, not in overt distress. SKIN: Adequate turgor. HEENT: He has pinkish conjunctivae, anicteric sclerae. NECK: No neck mass, no carotid bruits, no JVD. CHEST: No deformities. LUNGS: Clear breath sounds, no wheezing, no crackles. HEART: Irregular, no murmur, no gallops or rubs. ABDOMEN: Globular, soft, nontender. No masses. EXTREMITIES: No edema, no deformities. LABORATORY: 03/22/2018 - BUN 20, creatinine 4.4, potassium 3.7. White count 7.9, hemoglobin 11.5. ASSESSMENT AND PLAN: 1. End-stage renal disease, stable. We will continue current Thursday, Thursday, Thursday hemodialysis . He is tolerating said treatment. 2. Chronic atrial fibrillation - the patient to be resumed on Eliquis 2.5 mg p.o. b.i.d. As per Car diology, continue medical management. 3. Mental status change. This may be a reflection of early dementia with the patient. 4. Anemia, stable, continuing weekly Epogen. From a renal point of view, the patient can be discharged anytime. We will follow him up at the outp atient dialysis unit.
[2018-03-23] MEDS: Apixaban 2.5 MG TAB PO SCH (09:31)
[2018-03-23] MEDS: Magnesium Chloride 64 MG TAB PO SCH (09:32)
[2018-03-23] MEDS: Cefdinir 300 MG CAP PO SCH (09:32)
[2018-03-23] MEDS: Doxycycline 100 MG CAP PO SCH (09:32)
[2018-03-23] MEDS: Folic Acid 1 MG TAB PO SCH (09:32)
--- NOTE | 2018-03-23 09:37 | PDOC.PN ---
- Subjective Encounter Start Date: 03/23/18 Encounter Start Time: 11:20 Subjective: Patient reports improved mentation. Still quite weak. No new complaints. - Objective Resuscitation Status: Resuscitation Status DNR:Do Not Resuscitate MAR Reviewed: Yes Vital Signs & Weight: Vital Signs (12 hours) Temp Pulse Resp BP Pulse Ox 03/23/18 08:00 97.3 F L 88 20 163/68 H 93 L 03/23/18 04:00 96.2 F L 60 20 138/63 97 03/22/18 21:40 65 Weight Admit Weight 144 lb Weight 143 lb 1.28 oz I&O: 03/22/18 03/23/18 03/24/18 06:59 06:59 06:59 Intake Total 1943 1080 Output Total 100 350 Balance 1843 730 Result Diagrams: 03/22/18 04:43 03/22/18 04:43 Phys Exam - Physical Examination Constitutional: NAD HEENT: moist MMs Respiratory: no wheezing, no rales, no rhonchi Cardiovascular: RRR, no significant murmur Gastrointestinal: soft, positive bowel sounds Neurological: non-focal, moves all 4 limbs Psychiatric: normal affect, A&O x 3 Dx/Plan (1) URTI (acute upper respiratory infection) Code(s): J06.9 - ACUTE UPPER RESPIRATORY INFECTION, UNSPECIFIED Status: Acute Comment: Switched to oral antibiotics, pt is improving, 5 more days of abx to complete 10 day course (2) Acute encephalopathy Code(s): G93.40 - ENCEPHALOPATHY, UNSPECIFIED Status: Acute Comment: Improving, likely due to upper respiratory tract infection (3) Atrial fibrillation with slow ventricular response Code(s): I48.91 - UNSPECIFIED ATRIAL FIBRILLATION Status: Acute Comment: Coreg d/c'd, on Elliquis (4) CHF (congestive heart failure) Code(s): I50.9 - HEART FAILURE, UNSPECIFIED Status: Chronic Qualifiers: Heart failure type: combined systolic and diastolic Comment: stable (5) ESRD (end stage renal disease) on dialysis Code(s): N18.6 - END STAGE RENAL DISEASE; Z99.2 - DEPENDENCE ON RENAL DIALYSIS Status: Chronic Comment: Dialysis per nephrology service (6) HTN (hypertension) Code(s): I10 - ESSENTIAL (PRIMARY) HYPERTENSION Status: Chronic Comment: controlled - Plan cont current plan of care, continue antibiotics, PT/OT D/C to SNF * . - Discharge Day Encounter end time: 11:55
--- NOTE | 2018-03-23 14:19 | DIS ---
PRIMARY CARE PHYSICIAN: Any Osman. REASON FOR ADMISSION: Altered mental status. DISCHARGE DIAGNOSES: 1. Acute upper respiratory tract infection, improved. 2. Acute encephalopathy secondary to #1, resolved. 3. Atrial fibrillation with slow ventricular response and bradycardia. 4. Combined systolic and diastolic congestive heart failure, chronic. 5. End-stage renal disease on dialysis. 6. Hypertension. PROCEDURES: 1. CT of the brain showing small vessel ischemic disease and cerebral atrophy without acute abnormality. 2. CT of the chest with contrast showing bilateral pleural effusions with adjacent atelectasis, biapical scarring, nonspecific mediastinal lymph nodes, and bilateral renal cysts. 3. MRI of the brain showing no evidence of acute intracranial abnormality, just small vessel ischemic disease. 4. Echocardiogram showing ejection fraction of 45% to 50%, atrial fibrillation and some monitoring aortic regurgitation with severe left atrial dilatation, elevated pulmonary artery pressures. CONSULTATIONS: 1. Nephrology, Dr. Luciano. 2. Neurology, Dr. Keita. 3. Cardiology, Dr. Wagner. SUMMARY OF HOSPITAL COURSE: This is an 82-year-old white male, who presented from his assisted living facility to the [facility] for altered mental status and has been some fluctuation over the last week, reportedly on antibiotics 10 days ago for pneumonia, discharged, but had recurrent confusion. The patient was admitted to the hospital. He had studies done as above. Dr. Mckinley was consulted to continue with his dialysis. Dr. Keita was consulted after reviewing the CT and MRI determined that the patient's confusion was secondary to metabolic encephalopathy likely respiratory tract infection. Patient was treated with IV antibiotics and had significant improvement in his mental status. The patient did have some significant bradycardia in the hospital. Dr. Wagner was consulted and did the echocardiogram as above and then took him off of his Coreg. The patient is now significantly improved and has been cleared for discharge. He is going to a [facility] facility. DISCHARGE MANAGEMENT: Discharged to [facility] facility. ACTIVITY: As tolerated. DIET: Renal diet with high protein. THERAPY: Occupational and physical therapy and wound care for some sores on his foot. He is to continue oxygen 2-3 liters need to keep his sats above 92%. DISCHARGE MEDICATIONS: 1. Amlodipine decreased to 2.5 mg at night, 30 tablets dispensed. 2. Cefdinir 300 mg twice a day for another 5 days. 3. Doxycycline 100 mg twice a day for another 5 days. 4. Continue Eliquis 2.5 mg twice a day. 5. Acetaminophen as needed. 6. Ambien 5 mg at night as needed. 7. Procrit 5000 units subcu every 7 days. 8. Atorvastatin 40 mg at night. 9. The patient is to stop his Coreg. I spent 32 minutes on this discharge. MTDD
[2018-03-23 16:05] VITALS: TEMP 97
[2018-03-23 16:32] VITALS: BP 147/63
== END 2018-03-23 18:06 | DRG 91 ==
LOC: ERS 03:30 → 2SE 08:11
PROVIDERS: ADMIT Hospitalist; ATTEND Hospitalist
DX: G92 Toxic encephalopathy (principal); N18.6 End stage renal disease; I13.2 Hypertensive heart and chronic kidney disease with heart failure and with stage 5 chronic kidney disease, or end stage renal disease; I50.42 Chronic combined systolic (congestive) and diastolic (congestive) heart failure; J98.11 Atelectasis; J06.9 Acute upper respiratory infection, unspecified; R00.1 Bradycardia, unspecified; Z99.2 Dependence on renal dialysis; Z66 Do not resuscitate; I48.2 Chronic atrial fibrillation; D64.9 Anemia, unspecified; I07.1 Rheumatic tricuspid insufficiency; I25.10 Atherosclerotic heart disease of native coronary artery without angina pectoris; I73.9 Peripheral vascular disease, unspecified; J44.9 Chronic obstructive pulmonary disease, unspecified; Z88.2 Allergy status to sulfonamides; F03.90 Unspecified dementia, unspecified severity, without behavioral disturbance, psychotic disturbance, mood disturbance, and anxiety; E78.5 Hyperlipidemia, unspecified
CPT/HCPCS: 36415; 51701; 70450; 70551; 71045; 71260; 80048; 80053; 80306; 81003; 81015; 82140; 82550; 82553; 82565; 82607; 82746; 83605; 83690; 83735; 83880; 84443; 84484; 85014; 85018; 85025; 85049; 87040; 87045; 87046; 87324; 87449; 87899; 90935; 93005; 93306; G0257; G8978-GP-CL; G8979-GP-CK; G8987-GO-CK; G8988-GO-CI; J0456; J0696; J1644; J7050; Q4081